=== PATIENT | male | born 1955 | race Two or more races ===

== ENCOUNTER 2023-08-17 10:43 | Emergency (ER) | payer MEDICARE, OTHER ==
[~2023-08-17] VITALS: Ht 175.3 cm; Wt 60.9 kg
[2023-08-17 11:38] LABS: Basophils # (auto) 0 10 ^3/uL (0-0.2); Basophils % (auto) 0.5 % (0.0-2.0); Eosinophils # (auto) 0 10 ^3/uL (0-0.8); Eosinophils % (auto) 0.5 % (0.0-7.0); Hematocrit 45.2 % (41.0-53.0); Hemoglobin 14.7 g/dL (13.5-17.5); Lymphocytes # (auto) 0.8 10 ^3/uL (0.4-5.4); Lymphocytes % (auto) 8.2 % (10.0-50.0); Mean Corpuscular Hgb Conc. 32.6 g/dL (32.0-36.0); Mean Corpuscular Volume 92.2 fL (80.0-100.0); Monocytes # (auto) 0.7 10 ^3/uL (0-1.3); Monocytes % (auto) 7.1 % (0.0-12.0); Neutrophils % (auto) 83.7 % (37.0-80.0); Red Cell Distribution Width 15.3 % (11.8-14.3); White Blood Cell 9.6 10^3/uL (4.4-10.8)
[2023-08-17 11:49] LABS: Alanine Aminotransferase 24 U/L (7-40); Albumin 4.5 g/dL (3.2-4.8); Alkaline Phosphatase 100 U/L (46-116); Anion Gap 8 (5-15); Aspartate Aminotransferase 17 U/L (13-40); BUN/Creatinine Ratio 23.1 (10.0-20.0); Blood Urea Nitrogen 18 mg/dL (9-23); Calcium 10.3 mg/dL (8.7-10.4); Carbon Dioxide 25 mmol/L (20-30); Chloride 108 mmol/L (98-107); Glucose 135 mg/dL (74-106); Lipase 27 U/L (12-53); Sodium 141 mmol/L (136-145)
[2023-08-17 11:50] LABS: Bilirubin, Total 0.5 mg/dL (0.2-1.0); Total Protein 7.2 g/dL (5.7-8.2)
[2023-08-17 11:51] LABS: INR 1.05 (0.9-1.15); Partial Thromboplastin Time 29.6 SEC (24.5-34.5)
[2023-08-17 12:05] LABS: Urine Bacteria None Seen /hpf (None Seen)
[2023-08-17 12:34] LABS: Urine Blood 3+ /uL (Negative); Urine Clarity Ex.Turbid (Clear); Urine Color Brown (Yellow); Urine Mucus FEW (None Seen); Urine Protein, UAD 1+ (Negative); Urine Urobilinogen Normal (Negative); Urine WBC 6 /hpf (0 - 3)
[2023-08-17] MEDS ORDERED: ACET-1304 PO (14:07)
[2023-08-17] MEDS ORDERED: CEPH500T PO (14:07)
[2023-08-17] MEDS ORDERED: PHEN95TA10 PO (14:07)
[2023-08-17] MEDS: SODIUM CHLORIDE 0.9% 1,000 ML IVB ONE (15:34)
[2023-08-17] MEDS: KETOROLAC TROMETH 30 MG/ML 1ML VIAL IV ONE (15:35)
[2023-08-17] MEDS: ONDANSETRON HCL 4 MG/2 ML VIAL IV ONE (15:35)
[2023-08-17 16:33] VITALS: BP 165/88; PULSE 79; RESP 18; TEMP 97.4; O2SAT 97
== END 2023-08-17 16:39 | disposition home or self-care (01) ==
LOC: ER 10:43
DX: N30.91 Cystitis, unspecified with hematuria (principal); I10 Essential (primary) hypertension; E11.9 Type 2 diabetes mellitus without complications; E78.5 Hyperlipidemia, unspecified; Z79.899 Other long term (current) drug therapy
CPT/HCPCS: 36415; 74176; 80053; 81001; 83605; 83690; 84484; 85025; 85610; 85730; 87040; 96360; 99284; J7030